=== PATIENT | male | born 1965 | race Caucasian/White ===

== ENCOUNTER 2021-03-28 12:58 | Outpatient (CLI) | payer MEDICAID, SELFPAY ==
--- NOTE | ~2021-03-28 | XR_ITS ---
EXAMINATION: XR shoulder LT min 2V DATE: 03/28/2021 13:40 INDICATION: Left shoulder limited range of motion. TECHNIQUE: 4 views of left shoulder were obtained. COMPARISON: None. FINDINGS: Bone alignment is normal. No fracture. There is mild osteoarthritis of glenohumeral joint a nd acromioclavicular joint. IMPRESSION: 1. Polyarticular osteoarthritis. Reviewed, dictated and finalized at location B. STICS CLERK
--- NOTE | ~2021-03-28 | XR_ITS ---
EXAMINATION: XR shoulder RT min 2V DATE: 03/28/2021 13:40 INDICATION: Right shoulder limited range of motion. TECHNIQUE: 4 views of right shoulder were obtained. COMPARISON: None. FINDINGS: Bone alignment is normal. No fracture. There is mild osteoarthritis of glenohumeral joint a nd moderate osteoarthritis of acromioclavicular joint. IMPRESSION: 1. Polyarticular osteoarthritis. Reviewed, dictated and finalized at location B. S AND SERVICE SUPERVISOR
== END 2021-03-28 12:59 | disposition home or self-care (01) ==
LOC: CHSIMG 13:06
PROVIDERS: PCP Nurse Practitioner Family; Visit Provider Nurse Practitioner Family
DX: M25.60 Stiffness of unspecified joint, not elsewhere classified (principal)
CPT/HCPCS: 73030